=== PATIENT | male | born 1960 | race Caucasian/White ===

== ENCOUNTER → 2018-12-29 | Outpatient (CLI) | payer OTHER ==
[~2018-12-29] MED LIST: ASPIRIN 81M81 MG/TA2 PO; CLARITIN 1010 MG/TAB PO; GLUCOPHAGE1000 MG PO; GLYBURIDE PO; JANUVIA 100MG100 MG PO; NAPROSYN500 MG PO; PLAVIX 75MG TAB75 MG PO; PROCARDIA XL 3030 MG PO; ZESTRIL40 MG PO; ZOCOR 20MG20 MG PO
== END ==
LOC: COL.RAD 07:40
DX: M51.24 Other intervertebral disc displacement, thoracic region (principal); M47.813 Spondylosis without myelopathy or radiculopathy, cervicothoracic region; M48.03 Spinal stenosis, cervicothoracic region; M48.05 Spinal stenosis, thoracolumbar region; M51.35 Other intervertebral disc degeneration, thoracolumbar region; Y09 Assault by unspecified means